=== PATIENT | male | born 1985 | race Caucasian/White ===

== ENCOUNTER 2016-11-26 13:02 | Emergency (ER) | payer OTHER ==
[~2016-11-26] VITALS: Ht 175.3 cm; Wt 89.0 kg
[~2016-11-26 13:02] MED LIST: NARCAN4 MG NS; WELLBUTRIN XL150 MG PO
[2016-11-26] MEDS ORDERED: KEFLEX500 MG PO (14:42)
[2016-11-26 14:54] VITALS: BP 159/85
== END 2016-11-26 14:57 | disposition home or self-care (01) ==
LOC: EME 13:02
PROC: 3E0234Z Introduction of Serum, Toxoid and Vaccine into Muscle, Percutaneous Approach (ICD-10-PCS; principal; 2016-11-26)
DX: S61.001A Unspecified open wound of right thumb without damage to nail, initial encounter (principal); W27.8XXA Contact with other nonpowered hand tool, initial encounter; Y99.0 Civilian activity done for income or pay; Z23 Encounter for immunization
CPT/HCPCS: 73140; 99281; 99284